=== PATIENT | female | born 1990 ===

== ENCOUNTER 2024-06-22 11:35 | Outpatient (CLI) | payer OTHER | END 2024-06-22 11:37 | disposition home or self-care (01) | LOC: PRENATAL 11:35 | PROVIDERS: ATTEND Obstetrics & Gynecology Maternal & Fetal Medicine | DX: O09.529 Supervision of elderly multigravida, unspecified trimester (principal); O24.319 Unspecified pre-existing diabetes mellitus in pregnancy, unspecified trimester; O34.219 Maternal care for unspecified type scar from previous cesarean delivery; O14.90 Unspecified pre-eclampsia, unspecified trimester; O36.1999 Maternal care for other isoimmunization, unspecified trimester, other fetus; Z3A.12 12 weeks gestation of pregnancy ==

== ENCOUNTER → 2024-08-24 08:09 | Outpatient (CLI) | payer OTHER | END | disposition home or self-care (01) | LOC: PRENATAL 08:09 | PROVIDERS: ATTEND Obstetrics & Gynecology Maternal & Fetal Medicine | DX: O44.00 Complete placenta previa NOS or without hemorrhage, unspecified trimester (principal); O09.529 Supervision of elderly multigravida, unspecified trimester; O24.319 Unspecified pre-existing diabetes mellitus in pregnancy, unspecified trimester; O34.219 Maternal care for unspecified type scar from previous cesarean delivery; O14.90 Unspecified pre-eclampsia, unspecified trimester; O36.1999 Maternal care for other isoimmunization, unspecified trimester, other fetus; Z3A.21 21 weeks gestation of pregnancy ==

== ENCOUNTER → 2024-10-12 13:50 | Outpatient (CLI) | payer OTHER | END | disposition home or self-care (01) | LOC: PRENATAL 13:50 | PROVIDERS: ATTEND Obstetrics & Gynecology Maternal & Fetal Medicine | DX: O26.849 Uterine size-date discrepancy, unspecified trimester (principal); O09.529 Supervision of elderly multigravida, unspecified trimester; O24.319 Unspecified pre-existing diabetes mellitus in pregnancy, unspecified trimester; O34.219 Maternal care for unspecified type scar from previous cesarean delivery; O14.90 Unspecified pre-eclampsia, unspecified trimester; O36.1999 Maternal care for other isoimmunization, unspecified trimester, other fetus; Z3A.30 30 weeks gestation of pregnancy ==

== ENCOUNTER 2024-11-23 09:19 | Outpatient (CLI) | payer OTHER | END 2024-11-23 09:20 | disposition home or self-care (01) | LOC: PRENATAL 09:19 | PROVIDERS: ATTEND Obstetrics & Gynecology Maternal & Fetal Medicine | DX: O26.849 Uterine size-date discrepancy, unspecified trimester (principal); O36.8199 Decreased fetal movements, unspecified trimester, other fetus; O09.529 Supervision of elderly multigravida, unspecified trimester; O24.319 Unspecified pre-existing diabetes mellitus in pregnancy, unspecified trimester; O34.219 Maternal care for unspecified type scar from previous cesarean delivery; O14.90 Unspecified pre-eclampsia, unspecified trimester; O36.1999 Maternal care for other isoimmunization, unspecified trimester, other fetus; Z3A.36 36 weeks gestation of pregnancy ==